=== PATIENT | female | born 1940 | race Caucasian/White ===

== ENCOUNTER → 2016-12-20 | Outpatient (CLI) | payer MEDICARE ==
--- NOTE | 2016-12-15 11:58 | MH ---
cc: RAMOS STANLEY M.D. DATE OF ADMISSION 12/20/2016 ADMISSION DIAGNOSIS Cloudy posterior capsule right eye. HISTORY OF PRESENT ILLNESS This 76-year-old white female is coming through [facility] for the purpose of a YAG laser posterior capsulotomy of the right eye. She is status post cataract surgery with intraocular lens implants bilaterally in 2010 and has done well postoperatively but now is noticing decreasing visual acuity interfering with her daily activities and was found to have cloudy posterior capsules greater in the right eye than the left and has elected to have a YAG laser posterior capsulotomy of the right eye at this time. PAST MEDICAL HISTORY The patient has a history of: 1. Hypertension 2. Acid reflux 3. Sleep apnea 4. Allergies 5. Dry eyes PAST SURGICAL HISTORY Includes: 1. Lasik surgery 2. Bilateral cataract surgery with intraocular lens implants as mentioned above. 3. She has had surgery for cyst on the right jaw bone. 4. Blepharoplasty 5. Skin biopsies MEDICATIONS Daily medications include: 1. Triamterene 2. Evista 3. Irbesartan 4. Amlodipine 5. Multivitamins 6. Calcium 7. Move free 8. Baby aspirin 9. Co-Q10 10. Fish oil ALLERGIES She states that is allergic to ANY MEDICATION ENDING WITH THE SUFFIX PRIL. SOCIAL HISTORY Noncontributory FAMILY HISTORY Positive for parents both with cataracts and father with macular degeneration. REVIEW OF SYSTEMS Noncontributory OCULAR EXAM The patient's best corrected visual acuity is 20/30 in each eye. Visual cowart are full to confrontation testing. Extraocular muscle exam reveals full versions with orthophoria at distance and near. Pupils are 2 mm equal, round, reactive to light without afferent defect. Anterior segment examination reveals dermatochalasis of the eyelid skin. A posterior chamber intraocular lens is in place bilaterally with a cloudy posterior capsule greater in the right eye than the left. Intraocular pressure is 14 in the right eye and 21 in the left by applanation tonometry. Dilated fundus exam revealed sharp disk with cup-to-disk ratio 0.3 bilaterally. The macula is clear and a posterior vitreous detachment is present bilaterally. IMPRESSION 1. Cloudy posterior capsule right eye greater than left. 2. Pseudophakia both eyes 3. Posterior vitreous detachment both eyes. PLAN YAG laser posterior capsulotomy of the right eye through [facility]. MD GOLDIE Rasmussen /9:02 AM /11:54 AM
[~2016-12-20] MED LIST: AMLO5TAB96 PO; BALANCED SALT SOLN OPHT IRRIG 15 ML BTL ONE; CALC600T34 PO; CHOL1CAP6 OR; COQ150CA OR; FISH100020 OR; FLUOROMETHOLONE 0.25% OPHT SUSP 5 ML BTL ONE; GRAP100C OR; HYPROMELLOSE 0.3 % OPTH GEL 10 GM (0.34 FL OZ) TUBE ONE; IRBE1TAB39 PO; PHENYLEPHRINE HCL 2.5% OPTH SOLN 2 ML BTL ONE; PROPARACAINE HCL 0.5% OPHT SOLN 15 ML BTL ONE; RALO1TAB13 PO; TAB-TAB PO; TRIA37.512 PO; TROPICAMIDE 1% OPHT SOLN 15 ML BTL ONE
--- NOTE | 2016-12-22 08:58 | MP ---
cc: RAMOS FLEMING M.D. DATE OF SURGERY 12/20/2016 PREOPERATIVE DIAGNOSIS Cloudy posterior capsule right eye. POSTOPERATIVE DIAGNOSIS Cloudy posterior capsule right eye. OPERATION YAG laser posterior capsulotomy, right eye. SURGEON Ramos Fleming MD ANESTHESIA Topical COMPLICATIONS None INDICATIONS See history and physical previously dictated. PROCEDURE The patient arrived at [facility]. Blood pressure was 97/63, pulse 66, respirations 16. A drop of Alphagan P and Mydriacyl were instilled in the right eye. The patient was seated at the YAG laser. A drop of Alcaine was instilled in the right eye and a YAG laser posterior capsulotomy lens was placed on the anterior surface of the right cornea. YAG laser posterior capsulotomy was carried out utilizing 34 exposures of 1.3 millijoules. An adequate opening was seen following the procedure. A drop of Alphagan P was instilled topically. The patient was given a prescription for a topical steroid to be used four times per day and has an appointment for follow up on the first postoperative day in my office. The patient left the [facility] in satisfactory condition. MD REGINA Rasmussen/NADEEM /10:57 AM /8:52 AM
== END ==
LOC: PHSDC 09:57
PROVIDERS: ATTEND Ophthalmology
DX: H26.491 Other secondary cataract, right eye (principal); H43.813 Vitreous degeneration, bilateral; I10 Essential (primary) hypertension; K21.9 Gastro-esophageal reflux disease without esophagitis; G47.30 Sleep apnea, unspecified; Z96.1 Presence of intraocular lens; Z79.82 Long term (current) use of aspirin; Z79.899 Other long term (current) drug therapy

== ENCOUNTER → 2017-02-09 | Outpatient (CLI) | payer MEDICARE ==
--- NOTE | 2017-02-01 11:38 | MH ---
cc: RAMOS STANLEY DATE OF ADMISSION: 02/09/2017 ADMISSION DIAGNOSIS Cloudy posterior capsule, left eye. HISTORY OF PRESENT ILLNESS This 76-year-old white female is coming through [facility] for the purpose of a YAG laser posterior capsulotomy of the left eye. She had decreased visual acuity interfering with her daily activities and was found to have cloudy posterior capsules in both eyes following her previous cataract surgeries. She had a YAG laser posterior capsulotomy in the right eye in December and has done well postoperatively and now requests the same for her left eye. PAST MEDICAL HISTORY The patient has a history of hypertension, acid reflux, dry eyes, sleep apnea and some allergies. PAST SURGICAL HISTORY Bilateral cataract surgery. She has had LASIK surgery. She had a cyst on her right jaw bone removed, blepharoplasty and skin biopsy. MEDICATIONS Daily medications include: 1. Triamterene. 2. Evista. 3. Irbesartan. 4. Amlodipine. 5. Multivitamins. 6. Calcium. 7. Move Free. 8. Baby aspirin. 9. CoQ10. 10. Fish oil. ALLERGIES SHE IS ALLERGIC TO MEDICINES ENDING WITH THE SUFFIX "PRIL." FAMILY HISTORY Positive for mother and father with cataracts and father with macular degeneration. SOCIAL HISTORY Noncontributory. REVIEW OF SYSTEMS Noncontributory. OCULAR EXAMINATION On ocular exam the patient's best-corrected visual acuity was 20/20 -2 in the right eye and 20/30 in the left. Her vision does fluctuate, some days is better than others. Visual cowart are full to confrontation testing. Extraocular muscle exam reveals full versions with orthophoria at distance and near. Pupils are 2 mm equal, round, reactive to light without afferent defect. Anterior segment examination reveals a posterior chamber intraocular lens in place bilaterally with a YAG laser posterior capsulotomy present in the right eye and a cloudy posterior capsule present in the left. Intraocular pressure is 15 in the right eye and 20 in the left by applanation tonometry. Dilated fundus exam revealed sharp disks with cup-to-disk ratio 0.3 bilaterally. The macula is clear bilaterally. A posterior vitreous detachment is present bilaterally. IMPRESSION 1. Cloudy posterior capsule, left eye. 2. Pseudophakia, both eyes. 3. Posterior vitreous detachment, both eyes. PLAN YAG laser posterior capsulotomy of the left eye through [facility]. MD REGINA Rasmussen/LUIS /11:20 AM /11:29 AM
[~2017-02-09] MED LIST changes: -BALANCED SALT SOLN OPHT IRRIG 15 ML BTL ONE; -HYPROMELLOSE 0.3 % OPTH GEL 10 GM (0.34 FL OZ) TUBE ONE
[2017-02-09] MEDS: PROPARACAINE HCL 0.5% OPHT SOLN 15 ML BTL LEFT EYE ONE ×2 (08:14→08:30)
[2017-02-09] MEDS: TROPICAMIDE 1% OPHT SOLN 15 ML BTL LEFT EYE ONE ×2 (08:14→08:30)
[2017-02-09] MEDS: PHENYLEPHRINE HCL 2.5% OPTH SOLN 2 ML BTL LEFT EYE ONE ×2 (08:14→08:30)
[2017-02-09] MEDS: HYPROMELLOSE 0.3 % OPTH GEL 10 GM (0.34 FL OZ) TUBE ONE ×2 (08:28→08:47)
[2017-02-09] MEDS: BALANCED SALT SOLN OPHT IRRIG 15 ML BTL ONE ×2 (08:39→08:57)
[2017-02-09] MEDS: FLUOROMETHOLONE 0.25% OPHT SUSP 5 ML BTL LEFT EYE ONE ×2 (08:39→08:58)
--- NOTE | 2017-02-09 11:12 | MP ---
cc: RAMOS FLEMING M.D. DATE OF SURGERY 02/09/2017 PREOPERATIVE DIAGNOSIS Cloudy posterior capsule left eye. POSTOPERATIVE DIAGNOSIS Cloudy posterior capsule left eye. OPERATION YAG laser posterior capsulotomy, left eye. SURGEON Ramos Fleming MD ANESTHESIA Topical COMPLICATIONS None INDICATIONS See history and physical previously dictated. PROCEDURE The patient arrived at [facility]. Blood pressure was 114/69, pulse 63, respirations 16. A drop of Alphagan P and Mydriacyl were instilled in the left eye. The patient was seated at the YAG laser. A drop of Alcaine was instilled in the left eye and a YAG laser posterior capsulotomy lens was placed on the anterior surface of the left cornea. YAG laser posterior capsulotomy was carried out utilizing 38 exposures of 1.6 millijoules. An adequate opening was seen following the procedure. A drop of Alphagan P was instilled topically. The patient was given a prescription for a topical steroid to be used four times per day and has an appointment for follow up on the first postoperative day in my office. The patient left the [facility] in satisfactory condition. MD REGINA Rasmussen/NADEEM /10:28 AM /11:07 AM .6
== END ==
LOC: PHSDC 08:00
PROVIDERS: ATTEND Ophthalmology
DX: H26.492 Other secondary cataract, left eye (principal); H04.123 Dry eye syndrome of bilateral lacrimal glands; H43.813 Vitreous degeneration, bilateral; Z96.1 Presence of intraocular lens; G47.30 Sleep apnea, unspecified; K21.9 Gastro-esophageal reflux disease without esophagitis; I10 Essential (primary) hypertension